=== PATIENT | female | born 2000 | race Caucasian/White ===

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

== ENCOUNTER 2024-05-13 15:04 | Emergency (ER) | payer OTHER, SELFPAY ==
[2024-05-13 15:07] VITALS: BP 140/94; PULSE 90; RESP 17; TEMP 36.9; O2SAT 98; BMI 32.3
--- NOTE | 2024-05-13 16:02 | [facility].EDGENADL ---
Discharge Plan Disposition Patient Disposition: Home, Self-Care Prescriptions Prescriptions: New prednisone 20 mg tablet 40 mg PO DAILY 5 Days Qty: 10 0RF methocarbamol 750 mg tablet 1,500 mg PO TID 5 Days Qty: 30 0RF lidocaine 5 % adhesive patch,medicated 1 patch topical DAILY Qty: 30 0RF Rx Instructions: leave on most painful area for up to 12 hrs Referrals Follow up/Referrals: Suzette Pierce [Primary Care Provider] - See instructions Activity Restrictions/Add. Instructions Additional Instructions/Restrictions: Call your family doctor to establish care for this visit to the emergency department and schedule follow-up within 48 hours to ensure improvement. If you have any worsening of your condition or any other concerning signs or symptoms, return to the emergency department or your primary care doctor for further evaluation. Prednisone each morning for the next 5 days. Robaxin 3 times daily. Lidocaine patch once daily. You can cut it and put it in most tender areas. Clinical Impressions Clinical Impression: Trapezius muscle spasm Instructions Patient Instructions: DI for Neck Pain Print Language Print Language: Maltese Discharge ED Provider: [facility] HPI General Chief complaint: Neck Pain/Injury Stated complaint: stiff neck, low grade fever Time Seen by Provider: 05/13/24 15:27 Mode of Arrival: Family Vehicle Source of Information: Patient Limitations: No Limitations Description of Symptoms (Recalled from ER Triage Doc. by RN): Pt c/o neck pain and tightness to L posterior neck and into left shoulder. She does report parathesia to LUE. She did have a an episode of nausea and vomiting 3 days ago, and then the neck pain began 2 day ago. States she took tylenol & motrin last night without relief. Denies any injury, fall, or recent trauma. History of Present Illness HPI narrative: Please note that above description of symptoms, in this electronic medical record under categorization of recalled from ER triage doctor by RN are reflective of an initial nursing assessment, however, is not reflective of my full history and physical exam that was personally taken and clarified. Consequentially, this preceding description of symptoms, which may include the patient's categorized chief complaint in the EMR, do not reflect my personal clinical impression, and the ultimate description of history of present illness and patient stated complaints should be deferred to this section of the note. Unless stated otherwise or congruent with this section of the note, additional signs, symptoms, or incongruence should be interpreted as inaccurate with my clinical impression. Related Data Previous Rx's ?Medication ?Instructions ?Recorded lidocaine 5 % topical patch 1 patch topical DAILY #30 ea 05/13/24 methocarbamol 750 mg tablet 1,500 mg (2 x 750 mg) PO TID 5 05/13/24 days #30 tabs prednisone 20 mg tablet 40 mg (2 x 20 mg) PO DAILY 5 days 05/13/24 #10 tabs Allergies Allergy/AdvReac Type Severity Reaction Status Date / Time No Known Allergies Allergy Unverified 03/26/17 14:01 [facility] Disclaimer: The information contained in this section may have been updated after the patient was seen, as this information can be updated by other users. Social History Smoking Status: Never smoker alcohol intake: never substance use type: denies use current occupational status: student Travel in the last 8 weeks: None Have you lived/traveled outside [place] in past 30 days?: No Contact w/someone who lives/traveled outside [place] past 30 days?: No Exposure to someone with infectious disease in past 14 days?: No Do you have a fever (greater than 100.4 F or 38 C)?: Yes Have you tested positive for COVID-19: No Exposed to someone with COVID-19 in past 14 days?: No Do you have a sore throat?: No Do you have a cough?: No Do you have any weakness?: No Do you have any diarrhea?: No Are you experiencing any unusual bleeding?: No Do you have any muscle aches/pain?: No Do you have any abdominal pain?: No Are you experiencing loss of taste or smell?: No Other Medical History Have you received the Flu Vaccine for this season: No Have you received the Pneumonia Vaccine: No ROS Obtained: Yes All systems reviewed & no additional complaints except as documented Physical Exam General General appearance: alert Head Head exam: atraumatic and normocephalic Eye Eye exam: Present normal appearance, PERRL and EOMI Neck Neck exam: Present normal inspection, full ROM, trachea midline and tenderness (Left-sided muscle tenderness about the trapezius muscle. Does have muscle knot at the base of the trapezius where meeting the shoulder.); Absent meningismus Respiratory Respiratory exam: Absent respiratory distress, wheezes, stridor, accessory muscle use or prolonged expiratory phase Cardiovascular Cardiovascular exam: Present other (Pulses equal symmetric in upper and lower extremities) Abdominal Exam Abdominal exam: Present soft; Absent distention, tenderness or pulsatile mass Extremities Exam Extremities exam: Absent edema Neurological Exam Neurological exam: Present alert, oriented X3 and CN II-XII intact; Absent motor sensory deficit Skin Skin exam: Present warm and dry; Absent diaphoresis or erythema Medical Decision Making Medical Records Medical records reviewed: Yes I reviewed the patient's medical records. Screening: Per USPSTF and CDC recommendations, given the prevalence of disease in our region, it is our hospital?s policy to screen for HIV and viral Hepatitis for all patients aged 18 and over and those with ongoing risk factors. Sudhir Inquiry Pt receiving controlled substance: No Sudhir was queried for this patient: No Vital Signs: 05/13/24 15:07 Temperature 98.5 F Temperature Source Oral Pulse Rate [Right] 90 Respiratory Rate 17 Blood Pressure [Right Arm] 140/94 H Blood Pressure Mean [Right Arm] 109 Blood Pressure Source [Right Arm] Automatic Cuff 02 Sat by Pulse Oximetry 98 Oxygen Delivery Method Room Air Orders (Tests/Meds): ED MEDICATIONS Discontinued Medications Generic Name Dose Route Start Last Admin Trade Name Gonzaloq PRN Reason Stop Dose Admin Dexamethasone 10 mg 05/13/24 16:01 05/13/24 16:07 Dexamethasone 4mg Tablet PO 05/13/24 16:02 10 mg ONCE ONE Administration Lidocaine 1 each 05/13/24 16:01 05/13/24 16:06 Lidocaine 5% Transdermal Patch TP 05/13/24 16:02 1 each ONCE ONE Administration Methocarbamol 1,500 mg 05/13/24 16:01 05/13/24 16:06 Methocarbamol 500mg Tablet PO 05/13/24 16:02 1,500 mg ONCE ONE Administration Medical Decision Narrative: 24-year-old female presenting with neck stiffness and muscle tightness. Started 2 days prior to this and has gotten worse. Patient states that it is all left-sided, no midline tenderness. No confusion, weakness, vision changes, chest pain, shortness of breath, or any other concerns. She states that she woke up with the pain and it has just been getting progressively worse. Has not noticed anything that makes it better including Tylenol, Motrin, heating pads, etc. History obtained with patient. On arrival, she is very clinically well-appearing alert and oriented, nontachycardic, normotensive and neurologically intact. Able to range neck left, right, up, down, however she does have tenderness when turning head left and with shoulder abduction on the left. Muscle tenderness along trapezius muscle with a couple of trigger point/muscle knots. No midline tenderness. Differential includes muscle spasm, radiculopathy, neuropathy, radiculitis, disc herniation, among others. Because patient clinically well-appearing with no systemic signs or symptoms and no other findings consistent with meningitis, hematologic workup, as well as lumbar puncture was considered, but not deemed necessary. I also considered CT scanning of the neck to further evaluate patient's localized pain and swelling, but I did not feel this was necessary given it feels all muscular and patient does have objective trigger points. Neurologically intact, so no vascular imaging of the head or neck was necessary either. Patient was given Robaxin, prednisone and lidocaine patches. Because patient at baseline without signs or symptoms of clinical decompensation, deemed appropriate for discharge. Results were relayed to patient who voiced understanding and were agreeable to outpatient management and follow up. I discussed my clinical impression with patient and answered all questions. At this time, the evidence for any other entities in the differential is insufficient to warrant any further testing or ED observation. This was explained as well. Advisory was given that persistent or worsening symptoms require further evaluation. I confirmed the understanding of this discussion. Supply Chain Development Manager disclaimer Much of this encounter note is an electronic telephone maintainer spoken language to printed text. Electronic telephone maintainer of the spoken language may permit errors. Although I have reviewed the note, some errors may still exist. Critical Care Critical Care Time Critical Care Time: No
[2024-05-13] MEDS: LIDOCAINE 5% TRANSDERMAL PATCH 1 EACH TP (16:06)
[2024-05-13] MEDS: METHOCARBAMOL 500MG TABLET 1500 MG PO (16:06)
[2024-05-13] MEDS: DEXAMETHASONE 4MG TABLET 10 MG PO (16:07)
[2024-05-13 16:18] VITALS: BP 122/90; PULSE 78; RESP 16; TEMP 36.8; O2SAT 98
== END 2024-05-13 16:26 | disposition home or self-care (01) ==
PROVIDERS: Emergency Provider Emergency Medicine; PCP Nurse Practitioner Family
DX: M62.838 Other muscle spasm (principal); M43.6 Torticollis; M54.2 Cervicalgia
CPT/HCPCS: 99282; 99283; J8540

== ENCOUNTER 2024-10-24 14:04 | Emergency (ER) | payer OTHER, SELFPAY ==
[2024-10-24] VITALS (14 sets, daily range): BP systolic 105–132; BP diastolic 65–84; PULSE 72–103; RESP 12–24; TEMP 36.7–37; O2SAT 97–99; BMI 33.5
--- NOTE | 2024-10-24 14:09 | ECG_ITS ---
APPROVED REPORT Exam: Resting ECG HR:79 bpm ECG Measurements Heart Rate 79 AXES AK 176 P 60 QRSd 98 QRS 28 QT 346 T 49 QTc 381 Conclusion SINUS RHYTHM POSSIBLE RIGHT VENTRICULAR CONDUCTION DELAY [RSR (QR) IN V1/V2] BORDERLINE ECG UNCONFIRMED REPORT Electronically signed by : PRANAY OLVERA, 10/25/2024 06:32:14
--- NOTE | 2024-10-24 14:14 | ED_ITS ---
Discharge Plan Disposition Patient Disposition: Home, Self-Care Condition: Good Prescriptions Prescriptions: No Action prednisone 20 mg tablet 40 mg PO DAILY 5 Days Qty: 10 0RF methocarbamol 750 mg tablet 1,500 mg PO TID 5 Days Qty: 30 0RF lidocaine 5 % adhesive patch,medicated 1 patch topical DAILY Qty: 30 0RF Rx Instructions: leave on most painful area for up to 12 hrs Referrals Follow up/Referrals: Provider,Referral, [Primary Care Provider, Medical] - See instructions Activity Restrictions/Add. Instructions Additional Instructions/Restrictions: Take Tylenol and ibuprofen every 6 hours for the next 2 days and then as needed afterwards. Follow-up with your primary care provider in 1 week. Return to the emergency department for any acute or worsening symptoms. Clinical Impressions Clinical Impression: Chest pain, Shortness of breath Print Language Print Language: Korean Discharge ED Provider: Sedrick Watt General Adult HPI <Sedrick Watt MD - Last Filed: 10/24/24 15:20> General Chief complaint: Chest Pain Stated complaint: cp Time Seen by Provider: 10/24/24 14:04 Mode of Arrival: Ambulatory Source of Information: Patient Limitations: No Limitations History of Present Illness HPI narrative: Destiney Junior is a 24F with no significant past medical history, on oral contraceptives, who presents to the emergency department for complaints of sharp chest pain. Patient states that starting last night, patient had pain that was sharp in the middle of her chest. She states that it woke her from sleep this morning. She reports intermittent shortness of breath with it as well. She describes the pain is constant. She notes that she does have a history of reflux and her mom gave her medication for it this morning, however it did not help. She denies any history of blood clots, cough, hemoptysis, leg swelling. She denies any cardiac history. Related Data Previous Rx's ?Medication ?Instructions ?Recorded lidocaine 5 % topical patch 1 patch topical DAILY #30 ea 05/13/24 methocarbamol 750 mg tablet 1,500 mg (2 x 750 mg) PO T ID 5 05/13/24 days #30 tabs prednisone 20 mg tablet 40 mg (2 x 20 mg) PO DAILY 5 days 05/13/24 #10 tabs Allergies Allergy/AdvReac Type Severity Reaction Status Date / Time No Known Allergies Allergy Unverified 03/26/17 14:01 [facility] <Sedrick Wtat MD - Last Filed: 10/24/24 15:20> [facility] Disclaimer: The information contained in this section may have been updated after the patient was seen, as this information can be updated by other users. Social History Smoking Status: Current every day smoker alcohol intake: never substance use type: denies use current occupational status: student Travel in the last 8 weeks?: None Have you lived/traveled outside [place] in past 30 days?: No Contact w/someone who lives/traveled outside US past 30 days?: No Exposure to someone with infectious disease in past 14 days?: No Do you have a fever (greater than 100.4 F or 38 C)?: No Have you tested positive for COVID-19?: No Exposed to someone with COVID-19 in past 14 days?: No Do you have a sore throat?: No Do you have a cough?: No Do you have any weakness?: No Do you have any diarrhea?: No Are you experiencing any unusual bleeding?: No Do you have any muscle aches/pain?: No Do you have any abdominal pain?: No Are you experiencing loss of taste or smell?: No Other Medical History Have you received the Flu Vaccine for this season: No Have you received the Pneumonia Vaccine: No <Sedrick Watt MD - Last Filed: 10/24/24 15:20> ROS Obtained: Yes Systems reviewed as appropriate & no additional complaints except as documented Physical Exam <Sedrick Watt MD - Last Filed: 10/24/24 15:20> General General appearance: alert and in no apparent distress Head Head exam: atraumatic Eye Eye exam: Present normal appearance ENT ENT exam: Present normal external ear exam Neck Neck exam: Present full ROM Chest Chest inspection: Present symmetric chest wall rise Respiratory Respiratory exam: Present normal lung sounds bilaterally; Absent respiratory distress, wheezes or stridor Cardiovascular Cardiovascular exam: Present normal rhythm and tachycardia Abdominal Exam Abdominal exam: Present soft; Absent tenderness or guarding Extremities Exam Extremities exam: Present normal inspection Back Exam Back exam: Present normal inspection Neurological Exam Neurological exam: Present alert and oriented X3 Psychiatric Psychiatric exam: Present normal affect Skin Skin exam: Present warm and dry Medical Decision Making <Sedrick Watt MD - Last Filed: 10/24/24 15:20> Medical Records Screening: Per USPSTF and CDC recommendations, given the prevalence of disease in our region, it is our hospital?s policy to screen for HIV and viral Hepatitis for all patients aged 18 and over and those with ongoing risk factors. Sudhir Inquiry Pt receiving controlled substance: No Vital Signs: 10/24/24 14:15 10/24/24 14:24 10/24/24 14:30 Temperature 98.2 F Temperature Source Oral Pulse Rate 92 H 103 H Pulse Rate [Right] 100 H Respiratory Rate 18 Blood Pressure 106/67 L 111/70 Blood Pressure [Right Arm] 106/67 L Blood Pressure Mean [Right Arm] 80 02 Sat by Pulse Oximetry 97 98 98 10/24/24 14:45 10/24/24 15:00 10/24/24 15:30 Temperature Temperature Source Pulse Rate 99 H 96 H 72 Pulse Rate [Right] Respiratory Rate 15 18 17 Blood Pressure 125/81 119/82 116/84 Blood Pressure [Right Arm] Blood Pressure Mean [Right Arm] 02 Sat by Pulse Oximetry 98 98 98 10/24/24 15:46 10/24/24 16:01 10/24/24 16:15 Temperature Temperature Source Pulse Rate 92 H 78 98 H Pulse Rate [Right] Respiratory Rate 20 21 22 Blood Pressure 105/65 L 113/75 114/74 Blood Pressure [Right Arm] Blood Pressure Mean [Right Arm] 02 Sat by Pulse Oximetry 98 98 99 Lab Data Lab Results 10/24/24 14:10: WBC 8.1, RBC 4.44, Hgb 12.2, Hct 37.2, MCV 83.8, MCH 27.5, MCHC 32.8, RDW 13.9, Plt Count 354, MPV 9.2, Neut % (Auto) 66.6, Lymph % (Auto) 27.6, [place] % (Auto) 4.2, Eos % (Auto) 0.9, Baso % (Auto) 0.5, Neut # (Auto) 5.4, Lymph # (Auto) 2.2, [place] # (Auto) 0.3, Eos # (Auto) 0.1, Baso # (Auto) 0.0, D-Dimer 1.29 H, Sodium 139, Potassium 4.2, Chloride 107, Carbon Dioxide 23, Anion Gap 13.2, BUN 8, Creatinine 0.70, Estimated Creat Clear 188, Estimated GFR 105, Est GFR ( Amer) 127, Glucose 128 H, Calcium 9.7, Total Bilirubin 0.4, AST 32, ALT 19, Alkaline Phosphatase 67, Troponin I < 0.01, Total Protein 7.3, Albumin 4.3, Globulin 3.0, Albumin/Globulin Ratio 1.4, Lipase 101, Serum HCG, Qual Negative, HCV Ab CRISTBOAL w/Rflx PCR Qn Negative, HIV Ag/Ab Combo Qual Negative 10/24/24 14:10 10/24/24 14:10 Orders (Tests/Meds): ED MEDICATIONS Discontinued Medications Generic Name Dose Route Start Last Admin Trade Name Freq PRN Reason Stop Dose Admin Acetaminophen 1,000 mg 10/24/24 14:53 10/24/24 14:59 Acetaminophen 500mg Tab PO 10/24/24 14:54 1,000 mg ONCE ONE Administration Belladonna Alkaloids 60 ml 10/24/24 14:11 10/24/24 14:20 Belladonna Alkaloids 60 Ml Ml PO 10/24/24 14:12 60 ml ONCE ONE Administration Iopamidol 70 ml 10/24/24 15:23 10/24/24 15:24 Iopamidol-370 (76%);100ml Bottle IV 10/24/24 15:24 70 ml ONCE ONE Administration Ketorolac Tromethamine 15 mg 10/24/24 14:53 10/24/24 14:59 Ketorolac 30mg/Ml Vial IV 10/24/24 14:54 15 mg ONCE ONE Administration Sodium Chloride 50 ml 10/24/24 15:23 10/24/24 15:24 0.9 % Sodium Chloride 50 Ml Vial IV 10/24/24 15:24 50 ml ONCE ONE Administration Sodium Chloride 10 ml 10/24/24 15:23 10/24/24 15:24 Sodium Chloride 0.9% 10ml Syr (Rad Only) IV 10/24/24 15:24 10 ml ONCE ONE Administration ORDERS Category Date Time Status CT angio chest PE protocol Stat Cat Scan 10/24/24 14:43 Completed CBC w/Auto Diff [Complete Blood Count Auto Diff] Stat Lab 10/24/24 14:10 Completed CMP [Comprehensive Metabolic Panel] Stat Lab 10/24/24 14:10 Completed D-Dimer Stat Lab 10/24/24 14:10 Completed HIV Combo Stat Lab 10/24/24 14:10 Completed Hepatitis C Ab Qual. W/ RFX Stat Lab 10/24/24 14:10 Completed Lipase Stat Lab 10/24/24 14:10 Completed Serum [HCG Qualitative, Serum] Stat Lab 10/24/24 14:10 Completed Troponin I Q3H Lab 10/24/24 17:15 Ordered Troponin I Q3H Lab 10/24/24 20:15 Ordered Troponin I Stat Lab 10/24/24 14:10 Completed ECG Data Tracing #1: I reviewed this ECG and interpreted as documented below: . Significant artifact in lead V6 but otherwise no ST elevation or depression or T wave inversions. Sinus tachycardia with a ventricular rate of 100 bpm. QTc normal at 390 Tracing #2: I reviewed this ECG and interpreted as documented below: Normal sinus rhythm. No ST elevation or depression. V6 without artifact without ST elevation or depression or T wave inversion. Medical Decision Narrative: Destiney Junior is a 24F with no significant past medical history, on oral contraceptives, who presents to the emergency department for complaints of sharp chest pain. Patient states that starting last night, patient had pain that was sharp in the middle of her chest. She states that it woke her from sleep this morning. She reports intermittent shortness of breath with it as well. She describes the pain is constant and worsened when she turns her head to the right. She notes that she does have a history of reflux and her mom gave her medication for it this morning, however it did not help. She denies any history of blood clots, cough, hemoptysis, leg swelling. She denies any cardiac history. She denies any recent illnesses or fevers. On arrival, patient is mildly tachycardic, normotensive, breathing comfortably on room air with appropriate oxygen saturation. Cardiopulmonary exam revealed no wheezing, murmurs, rales or rhonchi. She has no swelling in her extremities. She is alert and appropriately oriented. Differential diagnosis includes, but is not limited to: Pulmonary embolism, ACS, pericarditis, myocarditis, pleurisy, pneumothorax, pneumonia, costochondritis, gastroesophageal reflux, acute pancreatitis, among others. The most morbid conditions were considered and workup was based on these. Workup in the emergency department includes: Chest x-ray, CBC, CMP, D-dimer, lipase, troponin, chest x-ray. Patient was treated with GI cocktail. Initial EKG with significant artifact in V6 but no obvious STEMI. Repeat EKG without artifact without STEMI or ischemic changes. See interpretation above Patient had not received her chest x-ray yet and lab work showed an elevated D- dimer of 1.29, given this, will discontinue chest x-ray and order CT PE. This was discussed with the patient and she was in agreement to pursue CT imaging at this time. CBC without anemia or leukocytosis. CMP unremarkable nonactionable with electrolytes within normal limits, no SIDDHARTH, glucose 128. Lipase normal at 101. At this time, patient's care was transferred to the oncoming physician, Dr. Ha, pending troponin and CT PE. <Jacque Ha, DO - Last Filed: 10/24/24 17:14> Vital Signs: 10/24/24 14:15 10/24/24 14:24 10/24/24 14:30 Temperature 98.2 F Temperature Source Oral Pulse Rate 92 H 103 H Pulse Rate [Right] 100 H Respiratory Rate 18 Blood Pressure 106/67 L 111/70 Blood Pressure [Right Arm] 106/67 L Blood Pressure Mean [Right Arm] 80 02 Sat by Pulse Oximetry 97 98 98 10/24/24 14:45 10/24/24 15:00 10/24/24 15:30 Temperature Temperature Source Pulse Rate 99 H 96 H 72 Pulse Rate [Right] Respiratory Rate 15 18 17 Blood Pressure 125/81 119/82 116/84 Blood Pressure [Right Arm] Blood Pressure Mean [Right Arm] 02 Sat by Pulse Oximetry 98 98 98 10/24/24 15:46 10/24/24 16:01 10/24/24 16:15 Temperature Temperature Source Pulse Rate 92 H 78 98 H Pulse Rate [Right] Respiratory Rate 20 21 22 Blood Pressure 105/65 L 113/75 114/74 Blood Pressure [Right Arm] Blood Pressure Mean [Right Arm] 02 Sat by Pulse Oximetry 98 98 99 Lab Data Lab Results 10/24/24 14:10: WBC 8.1, RBC 4.44, Hgb 12.2, Hct 37.2, MCV 83.8, MCH 27.5, MCHC 32.8, RDW 13.9, Plt Count 354, MPV 9.2, Neut % (Auto) 66.6, Lymph % (Auto) 27.6, [place] % (Auto) 4.2, Eos % (Auto) 0.9, Baso % (Auto) 0.5, Neut # (Auto) 5.4, Lymph # (Auto) 2.2, [place] # (Auto) 0.3, Eos # (Auto) 0.1, Baso # (Auto) 0.0, D-Dimer 1.29 H, Sodium 139, Potassium 4.2, Chloride 107, Carbon Dioxide 23, Anion Gap 13.2, BUN 8, Creatinine 0.70, Estimated Creat Clear 188, Estimated GFR 105, Est GFR ( Amer) 127, Glucose 128 H, Calcium 9.7, Total Bilirubin 0.4, AST 32, ALT 19, Alkaline Phosphatase 67, Troponin I < 0.01, Total Protein 7.3, Albumin 4.3, Globulin 3.0, Albumin/Globulin Ratio 1.4, Lipase 101, Serum HCG, Qual Negative, HCV Ab CRISTOBAL w/Rflx PCR Qn Negative, HIV Ag/Ab Combo Qual Negative Orders (Tests/Meds): ED MEDICATIONS Discontinued Medications Generic Name Dose Route Start Last Admin Trade Name Freq PRN Reason Stop Dose Admin Acetaminophen 1,000 mg 10/24/24 14:53 10/24/24 14:59 Acetaminophen 500mg Tab PO 10/24/24 14:54 1,000 mg ONCE ONE Administration Belladonna Alkaloids 60 ml 10/24/24 14:11 10/24/24 14:20 Belladonna Alkaloids 60 Ml Ml PO 10/24/24 14:12 60 ml ONCE ONE Administration Iopamidol 70 ml 10/24/24 15:23 10/24/24 15:24 Iopamidol-370 (76%);100ml Bottle IV 10/24/24 15:24 70 ml ONCE ONE Administration Ketorolac Tromethamine 15 mg 10/24/24 14:53 10/24/24 14:59 Ketorolac 30mg/Ml Vial IV 10/24/24 14:54 15 mg ONCE ONE Administration Sodium Chloride 50 ml 10/24/24 15:23 10/24/24 15:24 0.9 % Sodium Chloride 50 Ml Vial IV 10/24/24 15:24 50 ml ONCE ONE Administration Sodium Chloride 10 ml 10/24/24 15:23 10/24/24 15:24 Sodium Chloride 0.9% 10ml Syr (Rad Only) IV 10/24/24 15:24 10 ml ONCE ONE Administration ORDERS Category Date Time Status CT angio chest PE protocol Stat Cat Scan 10/24/24 14:43 Completed CBC w/Auto Diff [Complete Blood Count Auto Diff] Stat Lab 10/24/24 14:10 Completed CMP [Comprehensive Metabolic Panel] Stat Lab 10/24/24 14:10 Completed D-Dimer Stat Lab 10/24/24 14:10 Completed HIV Combo Stat Lab 10/24/24 14:10 Completed Hepatitis C Ab Qual. W/ RFX Stat Lab 10/24/24 14:10 Completed Lipase Stat Lab 10/24/24 14:10 Completed Serum [HCG Qualitative, Serum] Stat Lab 10/24/24 14:10 Completed Troponin I Q3H Lab 10/24/24 17:15 Ordered Troponin I Q3H Lab 10/24/24 20:15 Ordered Troponin I Stat Lab 10/24/24 14:10 Completed Medical Decision Narrative: Destiney Junior is a 24F with no significant past medical history, on oral contraceptives, who presents to the emergency department for complaints of sharp chest pain. Patient states that starting last night, patient had pain that was sharp in the middle of her chest. She states that it woke her from sleep this morning. She reports intermittent shortness of breath with it as well. She describes the pain is constant and worsened when she turns her head to the right. She notes that she does have a history of reflux and her mom gave her medication for it this morning, however it did not help. She denies any history of blood clots, cough, hemoptysis, leg swelling. She denies any cardiac history. She denies any recent illnesses or fevers. On arrival, patient is mildly tachycardic, normotensive, breathing comfortably on room air with appropriate oxygen saturation. Cardiopulmonary exam revealed no wheezing, murmurs, rales or rhonchi. She has no swelling in her extremities. She is alert and appropriately oriented. Differential diagnosis includes, but is not limited to: Pulmonary embolism, ACS, pericarditis, myocarditis, pleurisy, pneumothorax, pneumonia, costochondritis, gastroesophageal reflux, acute pancreatitis, among others. The most morbid conditions were considered and workup was based on these. Workup in the emergency department includes: Chest x-ray, CBC, CMP, D-dimer, lipase, troponin, chest x-ray. Patient was treated with GI cocktail. Initial EKG with significant artifact in V6 but no obvious STEMI. Repeat EKG without artifact without STEMI or ischemic changes. See interpretation above Patient had not received her chest x-ray yet and lab work showed an elevated D- dimer of 1.29, given this, will discontinue chest x-ray and order CT PE. This was discussed with the patient and she was in agreement to pursue CT imaging at this time. CBC without anemia or leukocytosis. CMP unremarkable nonactionable with electrolytes within normal limits, no SIDDHARTH, glucose 128. Lipase normal at 101. At this time, patient's care was transferred to the oncoming physician, Dr. Ha, pending troponin and CT PE. Jacque Ha, DO I took over the care after Dr. Watt. CT PE was negative for acute pulmonary embolism or other acute pathology. Patient's workup was otherwise unremarkable. Patient continued to have some mild shooting and sharp pain however I feel that we have ruled out the emergent causes of her pain and patient is appropriate for discharge home with symptomatic management with Tylenol and ibuprofen. Patient was recommended to take Tylenol and ibuprofen every 6 hours at home for the next 2 days. Patient was recommended to follow-up with her primary care provider in the next week and to return to the emergency department for any acute or worsening symptoms. Critical Care <Sedrick Watt MD - Last Filed: 10/24/24 15:20> Critical Care Time Critical Care Time: No
[2024-10-24] MEDS: BELLADONNA ALKALOIDS 60 ML ML PO (14:20)
--- NOTE | 2024-10-24 14:20 | ECG_ITS ---
APPROVED REPORT Exam: Resting ECG HR:100 bpm ECG Measurements Heart Rate [address] 167 P 70 QRSd 93 QRS 31 QT 333 T 66 QTc 390 Conclusion SINUS TACHYCARDIA LOW QRS VOLTAGE IN PRECORDIAL LEADS [QRS DEFLECTION < 1.0 mV IN CHEST LEADS] POSSIBLE RIGHT VENTRICULAR CONDUCTION DELAY [RSR (QR) IN V1/V2] ABNORMAL RHYTHM ECG UNCONFIRMED REPORT Electronically signed by : PRANAY OLVERA, 10/25/2024 06:32:28
[2024-10-24 14:24] LABS: Hematocrit 37.2 % (37.0-47.0); Hemoglobin 12.2 g/dL (12.2-16.2); Immature Granulocytes % 0.2 %; Mean Corpuscular HGB Conc 32.8 g/dL (31.8-35.4); Mean Corpuscular Hemoglobin 27.5 pg (27.0-31.2); Mean Corpuscular Volume 83.8 fl (81-99); Nucleated Red Blood Cells % 0 %; Platelet Count 354 K/mm3 (142-424); Red Blood Count 4.44 M/mm3 (4.20-5.40); Red Cell Distribution Width-SD 42.7 fL; White Blood Count 8.1 K/mm3 (4.8-10.8)
[2024-10-24 14:35] LABS: Alanine Aminotransferase 19 U/L (12-78); Albumin Level 4.3 g/dl (3.5-5.0); Albumin/Globulin Ratio 1.4 (1.1-1.8); Alkaline Phosphatase 67 U/L (38-126); Anion Gap 13.2 mEq/L (5-15); Aspartate Amino Transferase 32 U/L (14-36); Bilirubin,Total 0.4 mg/dl (0.2-1.3); Blood Urea Nitrogen 8 mg/dl (7-17); Calcium 9.7 mg/dl (8.4-10.2); Carbon Dioxide 23 mmol/L (22.0-30.0); Chloride 107 mmol/L (98-107); Creatinine Clearance Estimated 188 mL/min (50-200); Creatinine,Serum 0.70 mg/dl (0.52-1.04); Estimated Glomerular Filt Rate 105 ml/min (>60); GFR (African American) 127 ML/MIN (>60); Globulin 3.0 g/dL (1.3-3.2); Glucose 128 mg/dl (74-100); Lipase 101 U/L (23-300); Potassium 4.2 mmoL/L (3.5-5.1); Sodium 139 mmol/L (136-145); Total Protein,Serum 7.3 g/dl (6.3-8.2)
[2024-10-24 14:40] LABS: D-Dimer 1.29 ug/mL (0.0-0.5)
--- NOTE | 2024-10-24 14:43 | CT_ITS ---
PROCEDURE INFORMATION: Exam: CTA Chest With Contrast Exam date and time: 10/24/2024 3:24 PM Age: 24 years old Clinical indication: Other: Chest pain, SOB, elevated d dimer TECHNIQUE: Imaging protocol: Computed tomographic angiography of the chest with contrast. Exam focused on the arteries. 3D rendering (Not supervised by radiologist): MIP and/or 3D reconstructed images were created by the technologist. Radiation optimization: All CT scans at this facility use at least one of these dose optimization techniques: automated exposure control; mA and/or kV adjustment per patient size (includes targeted exams where dose is matched to clinical indication); or iterative reconstruction. Contrast material: ISO 370; Contrast volume: 70 ml; Contrast route: INTRAVENOUS (IV); COMPARISON: CT ABDOMEN PELVIS W CON 12/03/2019 3:21 PM FINDINGS: Pulmonary arteries: Normal. No pulmonary emboli. Aorta: Unremarkable. No aortic aneurysm. No aortic dissection. Lungs: Unremarkable. No consolidation. No masses. Pleural spaces: Unremarkable. No pneumothorax. No pleural effusion. Heart: Unremarkable. No cardiomegaly. No pericardial effusion. Lymph nodes: Unremarkable. No enlarged lymph nodes. Bones/joints: Unremarkable. No acute fracture. Soft tissues: Unremarkable. IMPRESSION: No acute findings.
[2024-10-24 14:53] LABS: Troponin I < 0.01 ng/ml (0.00-0.034)
[2024-10-24] MEDS: ACETAMINOPHEN 500MG TAB 1000 MG PO (14:59)
[2024-10-24] MEDS: KETOROLAC 30MG/ML VIAL 15 MG IV (14:59)
[2024-10-24 15:12] LABS: HCG Qualitative, Serum Negative (Negative)
[2024-10-24] MEDS: IOPAMIDOL-370 (76%);100ML BOTTLE 70 ML IV (15:24)
[2024-10-24] MEDS: SODIUM CHLORIDE 0.9% 10ML SYR (RAD ONLY) 10 ML IV (15:24)
[2024-10-24] MEDS: 0.9 % SODIUM CHLORIDE 50 ML VIAL IV (15:24)
[2024-10-24 15:48] LABS: Hepatitis C Ab Qual. W/ RFX NEGATIVE (Negative)
== END 2024-10-24 17:22 | disposition home or self-care (01) ==
PROVIDERS: Emergency Provider Student in an Organized Health Care Education/Training Program
DX: R07.9 Chest pain, unspecified (principal); R06.02 Shortness of breath; R00.0 Tachycardia, unspecified; K21.9 Gastro-esophageal reflux disease without esophagitis; F17.210 Nicotine dependence, cigarettes, uncomplicated
CPT/HCPCS: 71275; 80053; 83690; 84484; 84703; 85025; 85378; 86803; 87389; 93005; 96374; 99285; J1885; Q9967

== ENCOUNTER 2024-11-09 16:06 | Emergency (ER) | payer OTHER, SELFPAY ==
--- NOTE | 2024-11-09 16:09 | ECG_ITS ---
APPROVED REPORT Exam: Resting ECG HR:89 bpm ECG Measurements Heart Rate 89 AXES WA 171 P 49 QRSd 97 QRS 14 QT 346 T 46 QTc 393 Conclusion SINUS RHYTHM POSSIBLE LEFT ATRIAL ENLARGEMENT [-0.1mV P-WAVE IN V1/V2] POSSIBLE RIGHT VENTRICULAR CONDUCTION DELAY [RSR (QR) IN V1/V2] BORDERLINE ECG UNCONFIRMED REPORT Electronically signed by : Antolin Oseguera, 11/09/2024 23:22:22
--- NOTE | 2024-11-09 16:13 | XR_ITS ---
PROCEDURE INFORMATION: Exam: XR Chest Exam date and time: 11/09/2024 4:59 PM Age: 24 years old Clinical indication: Shortness of breath; Additional info: Dyspnea TECHNIQUE: Imaging protocol: Radiologic exam of the chest. Views: 1 view. COMPARISON: CT ANGIO CHEST PE PROTOCOL 10/24/2024 3:24 PM FINDINGS: Lungs: Unremarkable. No consolidation. Pleural spaces: Unremarkable. No pleural effusion. No pneumothorax. Heart/Mediastinum: Unremarkable. No cardiomegaly. Bones/joints: Unremarkable. IMPRESSION: No acute findings.
--- NOTE | 2024-11-09 16:15 | ED_ITS ---
Discharge Plan Disposition Patient Disposition: Home, Self-Care Prescriptions Prescriptions: New prednisone 50 mg tablet 50 mg PO DAILY 5 Days Qty: 5 0RF Rx Instructions: Please begin 1 day after ED visit naproxen 500 mg tablet 500 mg PO BID PRN (Reason: pain) 7 Days Qty: 14 0RF No Action prednisone 20 mg tablet 40 mg PO DAILY 5 Days Qty: 10 0RF methocarbamol 750 mg tablet 1,500 mg PO TID 5 Days Qty: 30 0RF lidocaine 5 % adhesive patch,medicated 1 patch topical DAILY Qty: 30 0RF Rx Instructions: leave on most painful area for up to 12 hrs Referrals Follow up/Referrals: Provider,Referral, MD [Primary Care Provider, Medical] - See instructions Activity Restrictions/Add. Instructions Additional Instructions/Restrictions: No definitive evidence of an acute cardiopulmonary emergency. As discussed I cannot definitively rule out a pulmonary embolism today as you had a abnormal screening D-dimer test which is a nonspecific acute phase reactant as we discussed. However given the fact that you recently had a CT scan that was performed without any evidence of this and with shared decision making we opted not to proceed with another CAT scan today given radiation exposure risks. You also have tenderness with palpation of your chest wall itself this is most likely an inflammatory process we will treat you with anti-inflammatory medications and steroids. Please follow-up with your primary care doctor if you are not improving and return to the emergency room with any worsening of your symptoms. Clinical Impressions Clinical Impression: Costochondritis Print Language Print Language: Nepali Discharge ED Provider: Omaira Oseguera [facility] General Chief Complaint: Chest Pain Stated Complaint: Chest Pain Time Seen by Provider: 11/09/24 16:12 History of Present Illness HPI narrative: Patient is a 24-year-old female today presenting with chest pain. States has been ongoing for about 2 weeks has been intermittent but has been constant since yesterday evening. It is substernal no alleviating or aggravating factors. She states that no significant worsening with inspiration no exertional symptoms no radiation no diaphoresis or dyspnea associate with this no fevers chills etc. No lower extremity swelling no hemoptysis or history of PE or DVT personally or in her family. No significant past medical history from a family standpoint. She also has no personal past medical history. Her only medication is a combined oral contraceptive pill. Related Data Previous Rx's ?Medication ?Instructions ?Recorded lidocaine 5 % topical patch 1 patch topical DAILY #30 ea 05/13/24 methocarbamol 750 mg tablet 1,500 mg (2 x 750 mg) PO T ID 5 05/13/24 days #30 tabs prednisone 20 mg tablet 40 mg (2 x 20 mg) PO DAILY 5 days 05/13/24 #10 tabs naproxen 500 mg tablet 500 mg PO BID PRN pain 7 day s #14 11/09/24 tabs prednisone 50 mg tablet 50 mg PO DAILY 5 days #5 tab s 11/09/24 Allergies Allergy/AdvReac Type Severity Reaction Status Date / Time No Known Allergies Allergy Unverified 03/26/17 14:01 [facility] Disclaimer: The information contained in this section may have been updated after the patient was seen, as this information can be updated by other users. Social History Smoking Status: Current every day smoker alcohol intake: never substance use type: denies use current occupational status: student Travel in the last 8 weeks?: None Have you lived/traveled outside [place] in past 30 days?: No Contact w/someone who lives/traveled outside US past 30 days?: No Exposure to someone with infectious disease in past 14 days?: No Do you have a fever (greater than 100.4 F or 38 C)?: No Have you tested positive for COVID-19?: No Exposed to someone with COVID-19 in past 14 days?: No Do you have a sore throat?: No Do you have a cough?: No Do you have any weakness?: No Do you have any diarrhea?: No Are you experiencing any unusual bleeding?: No Do you have any muscle aches/pain?: No Do you have any abdominal pain?: No Are you experiencing loss of taste or smell?: No Other Medical History Have you received the Flu Vaccine for this season: No Have you received the Pneumonia Vaccine: No ROS Obtained: Yes All systems reviewed & no additional complaints except as documented Physical Exam General General appearance: alert and in no apparent distress Chest Chest inspection: Present tenderness (Patient does have tenderness in the central aspect of her chest where the pain is located) Respiratory Respiratory exam: Present normal lung sounds bilaterally; Absent respiratory distress Cardiovascular Cardiovascular exam: Present regular rate and normal rhythm Neurological Exam Neurological exam: Present alert and oriented X3 HEART Score HEART Score HEART Score assessment performed?: Yes History (anamnesis): Slightly suspicious ECG: Normal Age: <45 years Risk factors: No known risk factors Troponin: </= normal limit HEART Score: 0 Critical Care Critical Care Time Critical Care Time: No Medical Decision Making Sudhir Inquiry Pt receiving controlled substance: No Vital Signs Vital Signs: 11/09/24 16:31 11/09/24 16:38 11/09/24 17:20 Temperature 97.7 F 97.7 F Temperature Source Oral Oral Pulse Rate 95 H 95 H Pulse Rate [Right] 95 H Respiratory Rate 12 12 Blood Pressure 146/96 H Blood Pressure [Right Arm] 146/96 H Blood Pressure Mean [Right Arm] 112 Blood Pressure Source Automatic Cuff Blood Pressure Source [Right Arm] Automatic Cuff Blood Pressure Position Supine Blood Pressure Position [Right Arm] Supine 02 Sat by Pulse Oximetry 99 99 Oxygen Delivery Method Room Air Room Air Lab Data Lab results reviewed: Yes I reviewed the patient's lab results. Labs: Lab Results 11/09/24 16:15: WBC 11.2 H, RBC 4.37, Hgb 11.7 L, Hct 36.0 L, MCV 82.4, MCH 26.8 L, MCHC 32.5, RDW 13.8, Plt Count 414, MPV 8.9, Neut % (Auto) 78.0, Lymph % (Auto) 16.4, Dodge % (Auto) 4.5, Eos % (Auto) 0.5, Baso % (Auto) 0.4, Neut # (Auto) 8.7 H, Lymph # (Auto) 1.8, Dodge # (Auto) 0.5, Eos # (Auto) 0.1, Baso # (Auto) 0.1, D-Dimer 1.13 H, Sodium 136, Potassium 4.1, Chloride 106, Carbon Dioxide 23, Anion Gap 11.1, BUN 10, Creatinine 0.70, Estimated GFR 105, Est GFR ( Amer) 127, Glucose 97, Calcium 9.7, Total Bilirubin 0.3, AST 32, ALT 16, Alkaline Phosphatase 79, Troponin I < 0.01, Total Protein 7.4, Albumin 4.4, Globulin 3.0, Albumin/Globulin Ratio 1.5, Serum HCG, Qual Negative 11/09/24 16:15 11/09/24 16:15 Response Orders (Tests/Meds): ED MEDICATIONS Discontinued Medications Generic Name Dose Route Start Last Admin Trade Name Ty PRN Reason Stop Dose Admin Ketorolac Tromethamine 15 mg 11/09/24 16:13 11/09/24 16:55 Ketorolac 30mg/Ml Vial IV 11/09/24 16:14 15 mg ONCE ONE Administration ORDERS Category Date Time Status CT angio chest PE protocol Stat Cat Scan 11/09/24 17:24 Stop Req CXR --portable [XR chest portable] Stat Exams 11/09/24 16:13 Taken CBC w/Auto Diff [Complete Blood Count Auto Diff] Stat Lab 11/09/24 16:15 Completed CMP [Comprehensive Metabolic Panel] Stat Lab 11/09/24 16:15 Completed D-Dimer Stat Lab 11/09/24 16:15 Completed HCG Qualitative, Serum Stat Lab 11/09/24 16:15 Completed Trop I [Troponin I] Stat Lab 11/09/24 16:15 Completed Troponin I Q3H Lab 11/09/24 19:15 Ordered Troponin I Q3H Lab 11/09/24 22:15 Ordered ECG Data Tracing #1: Attestation: I reviewed this ECG and interpreted as documented below: ECG Narrative: Ventricular rate of 89 normal sinus rhythm no acute ischemic changes noted normal axis nonspecific mild interventricular conduction delay MDM Narrative Medical Decision Narrative: Patient is a well-appearing 24-year-old female presenting today with chest pain. Incredibly unlikely to be acute coronary syndrome we will get a single troponin given constant symptoms since yesterday rule out any type of myocardial injury out. Patient is on oral contraceptive pills cannot use pulmonary embolism rule out criteria will obtain a D-dimer and used years criteria for further differentiation. Given the fact that she has superficial muscular tenderness it is possible that this is a musculoskeletal inflammatory process such as costochondritis. Chest x-ray will also be performed to rule out any type of lung parenchymal abnormality such as pneumothorax pneumonia etc. Toradol has been administered. Will reassess shortly Reassessment 534 patient remains very stable. Labs unremarkable aside from an elevated D-dimer. Chest x-ray was performed which I personally interpreted shows no acute cardiopulmonary emergency. Of note patient was recently here with similar complaints and had an elevated D-dimer and CT PE just a few days ago which was unremarkable. I had an extensive discussion with her regarding the risk and benefits of radiation exposure. She understands that we cannot definitively rule out a PE at this point but given the risks and harms of radiation we opted to not proceed with another CT scan. This was done with shared decision making. Naproxen and prednisone have been ordered as she does have localized superficial chest wall discomfort is possible she has an inflammatory process such as costochondritis which would be a working diagnosis at this point. No evidence of any myocardial injury or acute coronary syndrome etc. Patient is very comfortable following up with her primary care doctor and will return with any significant worsening of her symptoms.
[2024-11-09 16:30] LABS: Hematocrit 36.0 % (37.0-47.0); Hemoglobin 11.7 g/dL (12.2-16.2); Immature Granulocytes % 0.2 %; Mean Corpuscular HGB Conc 32.5 g/dL (31.8-35.4); Mean Corpuscular Hemoglobin 26.8 pg (27.0-31.2); Mean Corpuscular Volume 82.4 fl (81-99); Nucleated Red Blood Cells % 0 %; Platelet Count 414 K/mm3 (142-424); Red Blood Count 4.37 M/mm3 (4.20-5.40); Red Cell Distribution Width-SD 41.4 fL; White Blood Count 11.2 K/mm3 (4.8-10.8)
[2024-11-09 16:31] VITALS: BP 146/96; PULSE 95; RESP 12; TEMP 36.5; O2SAT 99; BMI 32.3
[2024-11-09 16:33] LABS: Alanine Aminotransferase 16 U/L (12-78); Albumin Level 4.4 g/dl (3.5-5.0); Albumin/Globulin Ratio 1.5 (1.1-1.8); Alkaline Phosphatase 79 U/L (38-126); Anion Gap 11.1 mEq/L (5-15); Aspartate Amino Transferase 32 U/L (14-36); Bilirubin,Total 0.3 mg/dl (0.2-1.3); Blood Urea Nitrogen 10 mg/dl (7-17); Calcium 9.7 mg/dl (8.4-10.2); Carbon Dioxide 23 mmol/L (22.0-30.0); Chloride 106 mmol/L (98-107); Creatinine,Serum 0.70 mg/dl (0.52-1.04); Estimated Glomerular Filt Rate 105 ml/min (>60); GFR (African American) 127 ML/MIN (>60); Globulin 3.0 g/dL (1.3-3.2); Glucose 97 mg/dl (74-100); Potassium 4.1 mmoL/L (3.5-5.1); Sodium 136 mmol/L (136-145); Total Protein,Serum 7.4 g/dl (6.3-8.2)
[2024-11-09 16:38] VITALS: BP 146/96; PULSE 95; RESP 12; TEMP 36.5; O2SAT 99
[2024-11-09 16:38] LABS: D-Dimer 1.13 ug/mL (0.0-0.5)
[2024-11-09 16:46] LABS: HCG Qualitative, Serum Negative (Negative)
[2024-11-09] MEDS: KETOROLAC 30MG/ML VIAL 15 MG IV (16:55)
[2024-11-09 17:10] LABS: Troponin I < 0.01 ng/ml (0.00-0.034)
[2024-11-09 17:20] VITALS: PULSE 95
[2024-11-09 18:07] VITALS: BP 110/67; PULSE 80; RESP 16; TEMP 36.6; O2SAT 97
== END 2024-11-09 18:09 | disposition home or self-care (01) ==
PROVIDERS: Emergency Provider Student in an Organized Health Care Education/Training Program
DX: M94.0 Chondrocostal junction syndrome [Tietze] (principal); F17.210 Nicotine dependence, cigarettes, uncomplicated
CPT/HCPCS: 71045; 80053; 84484; 84703; 85025; 85378; 93005; 96374; 99285; J1885

== ENCOUNTER 2025-01-12 12:55 | Emergency (ER) | payer OTHER, SELFPAY ==
[2025-01-12 12:57] VITALS: BP 166/100; PULSE 88; RESP 18; TEMP 36.8; O2SAT 99; BMI 31.6
--- NOTE | 2025-01-12 13:08 | PC.NURSE ---
patient triage complete at this time, respiratory and strep swab sent at this time as well. patient offered to take treatment chair 13 to get her care started or to return to the lobby until another treatment room became available. patient stated she did not want to sit in the treatment chair by herself and requested to go to the lobby. patient educated to knock on the triage room door if she needed anything, or her symptoms worsened. patient back ion the waiting room with her significant other at this time.
[2025-01-12 13:09] LABS: Coronavirus 19, PCR Not Detected (NotDetected); Influenza A, PCR Not Detected (NotDetected); Influenza B, PCR Not Detected (NotDetected)
[2025-01-12 13:10] VITALS: O2SAT 100
[2025-01-12 13:24] LABS: Strep Scrn Group A (Rapid) Negative (Negative)
--- NOTE | 2025-01-12 14:10 | PC.NURSE ---
patient brought back into triage room at this time to obtain another set of vitals. no change in patient status. patient does not have any needs at this time. patient returned to lobby and educated to let registration staff or triage staff know of any changes.
[2025-01-12 14:11] VITALS: BP 138/87; PULSE 99; RESP 16; TEMP 36.8; O2SAT 100
--- NOTE | 2025-01-12 14:49 | ED_ITS ---
<Statement entered by Sedrick Watt MD - 01/13/25 02:45> I was consulted by the GERALD, and we discussed the complexity of the problems being addressed. I approve the treatment and management plan for this patient's care in the emergency department, thus performing a substantive portion of the medical decision making. Sedrick Watt MD Discharge Plan Disposition Patient Disposition: Home, Self-Care Prescriptions Prescriptions: New amoxicillin-pot clavulanate 875-125 mg tablet 1 tab PO BID Qty: 20 0RF valacyclovir [Valtrex] 1 gram tablet 1,000 mg PO BID 7 Days Qty: 14 0RF No Action prednisone 20 mg tablet 40 mg PO DAILY 5 Days Qty: 10 0RF methocarbamol 750 mg tablet 1,500 mg PO TID 5 Days Qty: 30 0RF lidocaine 5 % adhesive patch,medicated 1 patch topical DAILY Qty: 30 0RF Rx Instructions: leave on most painful area for up to 12 hrs prednisone 50 mg tablet 50 mg PO DAILY 5 Days Qty: 5 0RF Rx Instructions: Please begin 1 day after ED visit naproxen 500 mg tablet 500 mg PO BID PRN (Reason: pain) 7 Days Qty: 14 0RF Referrals Follow up/Referrals: Alisha Machuca APRN [Primary Care Provider, Medical] - See instructions Activity Restrictions/Add. Instructions Additional Instructions/Restrictions: Thank you for allowing us to care for you today. 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 Please take the entire course of the antibiotic and antiviral as prescribed. Follow up with your PCP if symptoms persist. Clinical Impressions Clinical Impression: Acute sinus infection, Fever blister Instructions Patient Instructions: Cold Sores, DI for Sinusitis Print Language Print Language: Bulgarian Discharge ED Provider: Jack Campa General Adult HPI General Chief complaint: Upper Respiratory Infection Stated complaint: chest congestion, throat swollen Time Seen by Provider: 01/12/25 14:49 Mode of Arrival: Ambulatory Source of Information: Patient Description of Symptoms (Recalled from ER Triage Doc. by RN): patient presents to the ED for sore throat, cough, nasal drainage, headaches and other upper respiratory symptoms for 3 weeks now. patient has done symptomatic management athome but the symptoms are persistent. no fevers at home. History of Present Illness HPI narrative: This is a 24-year-old female presenting to the emergency department for evaluation of runny nose, cough, and nasal congestion that began 2 to 3 weeks ago. Over the last 3 days she has also had a sore throat. Patient has not attempted medication at home. She also developed a fever blister over the last 3 days. She denies headache. She has not had a fever. No nausea, vomiting, diarrhea. No chest pain or shortness of breath. Related Data Previous Rx's ?Medication ?Instructions ?Recorded lidocaine 5 % topical patch 1 patch topical DAILY #30 ea 05/13/24 methocarbamol 750 mg tablet 1,500 mg (2 x 750 mg) PO T ID 5 05/13/24 days #30 tabs prednisone 20 mg tablet 40 mg (2 x 20 mg) PO DAILY 5 days 05/13/24 #10 tabs naproxen 500 mg tablet 500 mg PO BID PRN pain 7 day s #14 11/09/24 tabs prednisone 50 mg tablet 50 mg PO DAILY 5 days #5 tab s 11/09/24 amoxicillin 875 mg-potassium 1 tab PO BID #20 tabs 10/30 clavulanate 125 mg tablet valacyclovir 1 gram tablet 1,000 mg PO BID 7 days #14 tabs 01/12/25 (Valtrex) Allergies Allergy/AdvReac Type Severity Reaction Status Date / Time No Known Allergies Allergy Unverified 03/26/17 14:01 [facility] Disclaimer: The information contained in this section may have been updated after the patient was seen, as this information can be updated by other users. Social History Smoking Status: Light tobacco smoker alcohol intake: never substance use type: denies use current occupational status: student Travel in the last 8 weeks?: None Have you lived/traveled outside US in past 30 days?: No Contact w/someone who lives/traveled outside US past 30 days?: No Exposure to someone with infectious disease in past 14 days?: No Do you have a fever (greater than 100.4 F or 38 C)?: No Have you tested positive for COVID-19?: No Exposed to someone with COVID-19 in past 14 days?: No Do you have a sore throat?: No Do you have a cough?: No Do you have any weakness?: No Do you have any diarrhea?: No Are you experiencing any unusual bleeding?: No Do you have any muscle aches/pain?: No Do you have any abdominal pain?: No Are you experiencing loss of taste or smell?: No Other Medical History Have you received the Flu Vaccine for this season: No Have you received the Pneumonia Vaccine: No ROS Obtained: Yes Systems reviewed as appropriate & no additional complaints except as documented Physical Exam General General appearance: alert and in no apparent distress Head Head exam: atraumatic and normocephalic Eye Eye exam: Present PERRL and EOMI; Absent periorbital swelling ENT ENT exam: Present TM's normal bilaterally Neck Neck exam: Present normal inspection, full ROM and trachea midline; Absent tenderness Respiratory Respiratory exam: Present normal lung sounds bilaterally; Absent respiratory distress or wheezes Cardiovascular Cardiovascular exam: Present regular rate and normal rhythm Abdominal Exam Abdominal exam: Present soft; Absent distention or tenderness Neurological Exam Neurological exam: Present alert and oriented X3 Medical Decision Making Medical Records Screening: Per USPSTF and CDC recommendations, given the prevalence of disease in our region, it is our hospital?s policy to screen for HIV and viral Hepatitis for all patients aged 18 and over and those with ongoing risk factors. Sudhir Inquiry Pt receiving controlled substance: No Vital Signs: 01/12/25 12:57 01/12/25 13:10 01/12/25 14:11 Temperature 98.2 F 98.2 F Temperature Source Oral Oral Pulse Rate 99 H Pulse Rate [Right Radial] 88 Respiratory Rate 18 16 Blood Pressure 138/87 Blood Pressure [Right Arm] 166/100 H Blood Pressure Mean [Right Arm] 122 Blood Pressure Source Automatic Cuff Blood Pressure Source [Right Arm] Automatic Cuff Blood Pressure Position Sitting Blood Pressure Position [Right Arm] Sitting 02 Sat by Pulse Oximetry 99 100 100 Oxygen Delivery Method Room Air Room Air Room Air 01/12/25 15:12 Temperature 98.0 F Temperature Source Oral Pulse Rate 78 Pulse Rate [Right Radial] Respiratory Rate 16 Blood Pressure 132/85 Blood Pressure [Right Arm] Blood Pressure Mean [Right Arm] Blood Pressure Source Automatic Cuff Blood Pressure Source [Right Arm] Blood Pressure Position Sitting Blood Pressure Position [Right Arm] 02 Sat by Pulse Oximetry Oxygen Delivery Method Room Air Lab Data Lab Results 01/12/25 13:04: SARS-CoV-2 (PCR) Not detected, Influenza A Untype (PCR) Not detected, Influenza Type B (PCR) Not detected, Group A Strep Rapid Negative Orders (Tests/Meds): ORDERS Category Date Time Status Rapid PCR Covid and Flu A/B Stat Lab 01/12/25 13:04 Completed Rapid Strep Scrn Group A [Strep Scrn Group A (Rapid)] Lab 01/12/25 13:04 Completed Stat Strep Screen Confirmation Stat Micro 01/12/25 13:04 Received Medical Decision Narrative: In summary, this is a 24-year-old female presenting to the emergency department today for evaluation of upper respiratory symptoms. Patient reports 2 to 3 weeks of runny nose and cough. She has had a sore throat for the last 3 days. Patient also reports having a fever blister on her lower lip. She reports this happens when she gets ill. No medications attempted. No fevers at home, chest pain, shortness of breath. On exam patient is well-appearing and in no acute distress. Vital signs are normal. Respiratory rate and effort are normal. Lungs are clear to auscultation bilaterally without adventitious sounds. TMs are normal with no evidence of effusion. Oropharynx clear. Uvula midline. Tonsils 2+ and equal bilaterally without tonsillar exudates. Full range of motion of the neck. No anterior or posterior neck swelling or lymphadenopathy. There is a healing lesion on the outer lower lip, consistent with fever blister. The abdomen is soft, nondistended, nontender to palpation. No significant tenderness palpation of the maxillary or frontal sinuses. Differential diagnoses include but are not limited to viral upper respiratory infection, strep pharyngitis, viral pharyngitis, mononucleosis, acute sinusitis, oral HSV, among others. COVID and flu test negative. Strep negative. We will treat upper respiratory symptoms with Augmentin given symptoms for greater than 2 weeks and concern for acute bacterial sinusitis. We will treat fever blister with valacyclovir. Patient is appropriate for safe discharge home at this time. No concern for emergent etiology indicating additional workup. Patient will follow-up with her primary care provider in the coming days if symptoms are persistent. Return precautions discussed and understood and all questions have been answered at this time. Critical Care Critical Care Time Critical Care Time: No
--- NOTE | 2025-01-12 14:49 | PC.NURSE ---
patient taken back to treatment room 8 at this time and placed on monitor. no needs at this time.
[2025-01-12 15:12] VITALS: BP 132/85; PULSE 78; RESP 16; TEMP 36.7; O2SAT 100
== END 2025-01-12 15:13 | disposition home or self-care (01) ==
PROVIDERS: Emergency Provider Student in an Organized Health Care Education/Training Program; PCP Nurse Practitioner
DX: J01.90 Acute sinusitis, unspecified; R07.0 Pain in throat; B00.1 Herpesviral vesicular dermatitis
CPT/HCPCS: 87430; 87636; 99283